=== PATIENT | male | born 1960 ===

== ENCOUNTER 2019-11-07 18:30 | Emergency (ER) | payer OTHER ==
[~2019-11-07] VITALS: Ht 180.3 cm; Wt 107.9 kg
[2019-11-07 18:34] VITALS: BP 111/68
[2019-11-07] MEDS ORDERED: LIDOCAINE 1%, 10ML INFIL ONE (19:00)
[2019-11-07] MEDS ORDERED: LIDOCAINE-MPF 1%, 5ML ONE (19:19)
[2019-11-07] MEDS ORDERED: morphine SULFATE 10 MG/ML, 1ML ONE (19:21)
[2019-11-07] MEDS ORDERED: LIDOCAINE-MPF 1%, 5ML INFIL ONE (19:30)
[2019-11-07] MEDS ORDERED: NEOSPORIN OINT. PKT 1 PACKET ONE (21:04)
== END 2019-11-07 21:10 | disposition home or self-care (01) ==
LOC: ED 19:00
DX: S01.112A Laceration without foreign body of left eyelid and periocular area, initial encounter (principal); S09.8XXA Other specified injuries of head, initial encounter; W01.0XXA Fall on same level from slipping, tripping and stumbling without subsequent striking against object, initial encounter; Y93.89 Activity, other specified; Y92.098 Other place in other non-institutional residence as the place of occurrence of the external cause; Y99.8 Other external cause status
CPT/HCPCS: 12052; 70450; 72125; 99285